=== PATIENT | male | born 1960 | race American Indian/Alaskan Native ===

== ENCOUNTER 2016-07-20 22:14 | Inpatient (IN) | payer BC ==
[2016-07-20 23:28] LABS: BUN/Creatinine Ratio 15.83; Blood Urea Nitrogen 19 mg/dL (9-20); Carbon Dioxide 27 mmol/L (22-30); Glucose 158 mg/dL (75-100)
[2016-07-20 23:29] LABS: Anion Gap 18 mmol/L; Chloride 95.7 mmol/L (98-107); Potassium 3.8 mmol/L (3.6-5.0); Sodium 137 mmol/L (137-145)
[2016-07-20 23:50] LABS: Basophils % (Auto) 0.7 % (0.0-1.8); Eosinophils % (Auto) 1.1 % (0.0-4.3); Hematocrit 41.6 % (35.5-45.6); Hemoglobin 13.6 gm/dl (11.8-15.2); Mean Corpuscular HGB Conc 33 % (32-34); Mean Corpuscular Hemoglobin 27 pg (28-32); Mean Corpuscular Volume 84 fl (84-94); Platelet Count 259 K/mm3 (140-440); Red Blood Count 4.98 M/mm3 (3.65-5.03); Red Cell Distribution Width 13.8 % (13.2-15.2); White Blood Count 8.5 K/mm3 (4.5-11.0)
[2016-07-20 23:58] LABS: INR 0.99 (0.87-1.13)
--- NOTE | 2016-07-21 00:07 | Emergency Department Report ---
HPI - General Chief Complaint: Nosebleed Time Seen by Provider: 07/20/16 23:44 - HPI HPI: This is a 56-year-old Afro-[place] male presents the emergency department with complaint of a nosebleed from the right nasal passage is been going on intermittently for the past day. He does admit to blowing his nose and " picking at it." He denies any significant hemorrhage out of the nostril. He denies any previous significant history of epistaxis. He has a history of hypertension, COPD, non-insulin dependent diabetes and GERD. His primary care doctor is Melanie Lincoln and his acetylene torch burner is Dr. Melchor. He does present with very elevated blood pressure and says he is compliant with his medications which include hydralazine, clonidine, lisinopril and amlodipine. He denies any chest pain, headache, vision change or any shortness of breath. He has not taken anything for symptoms prior to presentation. ED Past Medical Hx - Past Medical History Hx Hypertension: Yes Hx Diabetes: Yes Hx GERD: Yes Hx Arthritis: Yes Hx Asthma: Yes Hx COPD: Yes - Surgical History Past Surgical History?: Yes Additional Surgical History: bilateral elbow surgery 2003 and left knee 2003 - Social History Smoking Status: Never Smoker Substance Use Type: None, Alcohol - Medications Home Medications: Home Medications Medication Instructions Recorded Confirmed Last Taken Type Clonidine HCl [Catapres] 0.2 mg PO BID 08/21/13 07/21/16 1 Day Ago History Hydrochlorothiazide [HCTZ] 25 mg PO BID 08/21/13 07/21/16 1 Day Ago History Levalbuterol Tartrate [Xopenex Hfa] 15 gm INHALATION PRN PRN 08/21/13 07/21/16 2 Days Ago History Lisinopril [Zestril] 40 mg PO BID 08/21/13 07/21/16 1 Day Ago History Mometasone/Formoterol [Dulera 200 8.8 gm INHALATION DAILY 08/21/13 07/21/16 3 Days Ago History Mcg/5 Mcg Inhaler] Tiotropium [Spiriva] 18 mcg INHALATION DAILY 08/21/13 07/21/16 3 Days Ago History Zolpidem [Ambien] 10 mg PO PRN PRN 08/21/13 07/21/16 2 Days Ago History glipiZIDE [Glucotrol Xl] 5 mg PO PRN PRN 08/21/13 07/21/16 1 Day Ago History predniSONE [Deltasone] 3 tab PO QDAY #15 tab 10/25/13 07/21/16 1 Day Ago Rx ALPRAZolam [Xanax TAB] 0.25 mg PO PRN PRN 11/27/15 07/21/16 3 Days Ago History Atorvastatin Calcium [Atorvastatin 40 mg PO HS 11/27/15 07/21/16 1 Day Ago History Calcium] Colchicine [Colcrys] 0.6 mg PO BID PRN 11/27/15 07/21/16 5 Days Ago History Fluticasone [Flonase] 1 spray NS QDAY 11/27/15 07/21/16 2 Days Ago History HYDROcodone/ACETAMINOPHEN 1 tab PO PRN PRN 11/27/15 07/21/16 3 Days Ago History [Hydrocodon-Acetaminophen 5-325] ISOSORBIDE MONOnitrate [Imdur ER] 30 mg PO DAILY #30 tab.er.24h 11/27/15 1 Day Ago Rx Nebivolol HCl [Bystolic] 20 mg PO DAILY 11/27/15 07/21/16 1 Day Ago History Omeprazole [PriLOSEC] 40 mg PO QDAY 11/27/15 07/21/16 1 Day Ago History Terazosin HCl [Terazosin HCl] 10 mg PO HS 11/27/15 07/21/16 2 Days Ago History amLODIPine [Norvasc] 10 mg PO DAILY 11/27/15 07/21/16 1 Day Ago History ED Review of Systems ROS: Stated complaint: NOSE BLEED Other details as noted in HPI Comment: All other systems reviewed and negative Constitutional: denies: chills, fever Eyes: denies: eye pain, eye discharge, vision change ENT: epistaxis. denies: throat pain Respiratory: denies: cough, shortness of breath, wheezing Cardiovascular: denies: chest pain, palpitations Gastrointestinal: denies: abdominal pain, nausea, diarrhea Genitourinary: denies: urgency, dysuria Musculoskeletal: denies: back pain, joint swelling, arthralgia Skin: denies: rash, lesions Neurological: denies: headache, weakness, paresthesias Physical Exam - Physical Exam Vital Signs: Vital Signs 07/20/16 07/20/16 22:18 22:20 Temperature 98.4 F 98.4 F Pulse Rate 71 71 Respiratory 18 16 Rate Blood Pressure 189/106 Blood Pressure 189/106 [Right] O2 Sat by Pulse 98 98 Oximetry Physical Exam: GENERAL: The patient is well-developed well-nourished. HEENT: Normocephalic. Atraumatic. Extraocular motions are intact. Patient has moist mucous membranes. Pupils equal reactive to light bilaterally. There is some blood seen in the right nasal passage but no hemorrhage or current oozing. Oropharynx is clear. NECK: Supple. Trachea is midline. CHEST/LUNGS: Clear to auscultation. There is no respiratory distress noted. HEART/CARDIOVASCULAR: Regular. There is no tachycardia. There is no gallop rub or murmur. ABDOMEN: Abdomen is soft, nontender. Patient has normal bowel sounds. There is no abdominal distention. SKIN: There is no rash. There is no edema. There is no diaphoresis. NEURO: The patient is awake, alert, and oriented. The patient is cooperative. The patient has no focal neurologic deficits. The patient has normal speech. Cranial nerves II through XII grossly intact. MUSCULOSKELETAL: There is no tenderness or deformity. There is no limitation range of motion. There is no evidence of acute injury. ED Course Vital Signs 07/20/16 02 22:18 22:20 Temperature 98.4 F 98.4 F Pulse Rate 71 71 Respiratory 18 16 Rate Blood Pressure 189/106 Blood Pressure 189/106 [Right] O2 Sat by Pulse 98 98 Oximetry ED Medical Decision Making - Lab Data Result diagrams: 07/20/16 22:52 07/20/16 22:52 - Medical Decision Making This is a 56-year-old male presents the emergency department with a complaint of epistaxis from the right nasal passage. There is some coagulated blood seen in the nasal passage but there is no active bleed or hemorrhage seen. During the patient's triage and examination he was found have very elevated blood pressure. Patient is usually compliant with his blood pressure medications. He took 2 of his blood pressure medications in the waiting room prior to getting back into the main emergency department. He denies any chest pain, headache, vision change, shortness of breath. I do believe that his elevated blood pressure is part of the reason for his continued epistaxis today. Patient had some blood work that did not show any signs of infection, electrolyte abnormalities, renal insufficiency or any bleeding disorder. At first we attempted to let his oral blood pressure medications, that he took prior to triage, to work to bring his blood pressure down to a reasonable level. However his blood pressure started rising and hit a systolic of 220. At this point an IV was placed and the patient and he was given a 10 mg dose of hydralazine. He was then given 20 mg IV dose of labetalol. When this did not properly control his blood pressure, the patient felt that it was due to the fact that he could not relax so he was given a dose of Ativan and this appropriately relaxed the patient to the point where he was sleeping comfortably in the emergency department. His blood pressure was checked at this point it still remained high. He was given another 10 mg dose of IV hydralazine and then was given a 40 mg IV dose of labetalol. After the labetalol was given his blood pressure was rechecked and his blood pressure was 201/113. It was at this point where the patient was told that he needs admission to the hospital for an IV drip to control his blood pressure and for a consultation with cardiology. However the patient does not want be admitted. I discussed with the patient in great detail that a blood pressure at this level could cause stroke, heart attack, heart failure, debility. The patient feels that if he goes home and rests, and takes his oral blood pressure medications, that his blood pressure will come down to a more reasonable level. I told the patient that I am not willing to risk it and that he would have to sign out AGAINST MEDICAL ADVICE. The patient is AAO 3 and of sound mind. He had all of the risks of leaving this hospital without blood pressure explained to him and he understands and still would like to sign the paper. Patient signed the AMA form. Patient did receive Ativan he would not be allowed to drive himself home unless he waits for another 2 hours. For this reason his is on her way in to pick him up. . The patient knows that if he changes his mind about admission or has any symptoms such as chest pain, neurological deficits, respiratory distress or for any reason, that he is allowed to come back to the emergency department for further evaluation and is encouraged to do so. - Differential Diagnosis hypertensive crisis, accelerated hypertension, renovascular HTN Critical Care Time: No Critical care attestation.: If time is entered above; I have spent that time in minutes in the direct care of this critically ill patient, excluding procedure time. ED Disposition Clinical Impression: Asymptomatic hypertensive urgency, Epistaxis Disposition: LEFT AGAINST MEDICAL ADVICE Is pt being admited?: No Condition: Stable Referrals: MELANEI LINCOLN MD [Primary Care Provider] - [facility] JENNIFER MELCHOR MD [Staff Physician] - [place] Forms: AMA Form Time of Disposition: 05:26
[2016-07-21] MEDS: APRESOLINE IV ONE ×2 (00:18→01:19)
[2016-07-21] MEDS ORDERED: NORMODYNE IV ONE ×2 (01:57→04:17)
[2016-07-21] MEDS ORDERED: ATIVAN IV ONE (02:44)
[2016-07-21] MEDS ORDERED: APRESOLINE IV ONE (03:49)
[2016-07-21] MEDS: NORMODYNE IV ONE ×2 (04:42→04:58)
[2016-07-21] MEDS ORDERED: NORVASC PO ONE (06:29)
[2016-07-21] MEDS ORDERED: ZESTRIL PO ONE (06:29)
[2016-07-21] MEDS ORDERED: CARDENE DRIP 40 MG/200 ML 40 MG/200 ML BAG IV SCH (08:30)
[2016-07-21] MEDS ORDERED: AMBIEN PO PRN (09:24)
[2016-07-21] MEDS ORDERED: COLCRYS PO PRN (09:24)
[2016-07-21] MEDS ORDERED: LEVALBUTEROL TARTRATE INHALATION PRN (09:24)
[2016-07-21] MEDS ORDERED: XANAX PO PRN (09:24)
[2016-07-21] MEDS ORDERED: GLUCOTROL XL PO PRN (09:24)
--- NOTE | 2016-07-21 09:41 | History and Physical Report ---
History of Present Illness Date of examination: 07/21/16 Date of admission: 07/21/16 09:13 Chief complaint: Nose bleeding, Hypertensive emergency History of present illness: Pt is a 56 y/o male with DMm, HTN, gout, COPD, and HLD who presented to the ED with epistaxis. Patient has been having the symptoms for the past few days. Patient has a history of hypertension but has not been consistent with his medications. At emergency department blood pressure was found to be in the 213/ 109. Denies any chest pain shortness of breath paroxysmal nocturnal dyspnea. No headaches. No blurred vision. The epistaxis has resolved at the time of documentation. Admission was therefore requested for control of blood pressure. Patient was found to be slightly elevated also. Past History Past Medical History: COPD, diabetes, hypertension, hyperlipidemia Past Surgical History: No surgical history Social history: denies: smoking, alcohol abuse Family history: hypertension Medications and Allergies Allergies Allergy/AdvReac Type Severity Reaction Status Date / Time No Known Allergies Allergy Verified 07/20/16 22:19 Home Medications Medication Instructions Recorded Confirmed Last Taken Type Clonidine HCl [Catapres] 0.2 mg PO BID 08/21/13 07/21/16 1 Day Ago History Hydrochlorothiazide [HCTZ] 25 mg PO BID 08/21/13 07/21/16 1 Day Ago History Levalbuterol Tartrate [Xopenex Hfa] 15 gm INHALATION PRN PRN 08/21/13 07/21/16 2 Days Ago History Lisinopril [Zestril] 40 mg PO BID 08/21/13 07/21/16 1 Day Ago History Mometasone/Formoterol [Dulera 200 8.8 gm INHALATION DAILY 08/21/13 07/21/16 3 Days Ago History Mcg/5 Mcg Inhaler] Tiotropium [Spiriva] 18 mcg INHALATION DAILY 08/21/13 07/21/16 3 Days Ago History Zolpidem [Ambien] 10 mg PO PRN PRN 08/21/13 07/21/16 2 Days Ago History glipiZIDE [Glucotrol Xl] 5 mg PO PRN PRN 08/21/13 07/21/16 1 Day Ago History predniSONE [Deltasone] 3 tab PO QDAY #15 tab 10/25/13 07/21/16 1 Day Ago Rx ALPRAZolam [Xanax TAB] 0.25 mg PO PRN PRN 11/27/15 07/21/16 3 Days Ago History Atorvastatin Calcium [Atorvastatin 40 mg PO HS 11/27/15 07/21/16 1 Day Ago History Calcium] Colchicine [Colcrys] 0.6 mg PO BID PRN 11/27/15 07/21/16 5 Days Ago History Fluticasone [Flonase] 1 spray NS QDAY 11/27/15 07/21/16 2 Days Ago History HYDROcodone/ACETAMINOPHEN 1 tab PO PRN PRN 11/27/15 07/21/16 3 Days Ago History [Hydrocodon-Acetaminophen 5-325] ISOSORBIDE MONOnitrate [Imdur ER] 30 mg PO DAILY #30 tab.er.24h 11/27/15 1 Day Ago Rx Nebivolol HCl [Bystolic] 20 mg PO DAILY 11/27/15 07/21/16 1 Day Ago History Omeprazole [PriLOSEC] 40 mg PO QDAY 11/27/15 07/21/16 1 Day Ago History Terazosin HCl [Terazosin HCl] 10 mg PO HS 11/27/15 07/21/16 2 Days Ago History amLODIPine [Norvasc] 10 mg PO DAILY 11/27/15 07/21/16 1 Day Ago History Active Meds: Active Medications Alprazolam (Xanax) 0.25 mg PO PRN PRN PRN Reason: Anxiety Amlodipine Besylate (Norvasc) 10 mg PO DAILY [facility] Atorvastatin Calcium (Lipitor) 40 mg PO HS [facility] Clonidine HCl (Catapres) 0.2 mg PO BID [facility] Colchicine (Colcrys) 0.6 mg PO BID PRN PRN Reason: Pain , Severe (7-10) Glipizide (Glucotrol Xl) 5 mg PO PRN PRN PRN Reason: Hyperglycemia Nicardipine/Sodium Chloride (Cardene Drip 40 Mg/200 Ml) 40 mg in 200 mls @ 25 mls/hr IV TITR CALVIN; 5 MG/HR PRN Reason: Protocol Last Admin: 07/21/16 08:29 Dose: 5 mg/hr, 25 mls/hr Isosorbide Mononitrate (Imdur) 30 mg PO DAILY [facility] Miscellaneous Medication (Levalbuterol Tartrate [Xopenex Hfa]) 15 gm INHALATION PRN PRN PRN Reason: Bronchospasm Miscellaneous Medication (Lisinopril [Zestril]) 40 mg PO BID [facility] Miscellaneous Medication (Mometasone/Formoterol [Dulera 200 Mcg/5 Mcg Inhaler]) 8.8 gm INHALATION DAILY [facility] Miscellaneous Medication (Nebivolol Hcl [Bystolic]) 20 mg PO DAILY [facility] Miscellaneous Medication (Omeprazole [Prilosec]) 40 mg PO QDAY [facility] Miscellaneous Medication (Terazosin Hcl [Terazosin Hcl]) 10 mg PO HS [facility] Prednisone (Deltasone) mg PO QDAY [facility] Tiotropium Titus (Spiriva) puff IH DAILY [facility] Zolpidem Tartrate (Ambien) 10 mg PO PRN PRN PRN Reason: Insomnia Review of systems Constitutional: Well Nouridhed and Well developed. Head: NC/ AT Eyes: Denies any visual impairments. No discharge from the eyes Nose: Denies any rhinorrhea. Has epistaxis Throats: Denies any post nasal drainage. Ears: Denies any hearing deficits Cardiovascular system: Denies any chest pain, shortness of breath, orthopnea, paroxysmal nocturnal dyspnea, or palpitation. Respiratory system: Denies any cough, difficulty breathing, wheezing, pleuritic chest pain, Gastrointestinal system: Denies any abdominal pain, nausea vomiting, hematemesis or melena. Neurological system: Denies any headache, slurred speech, facial droop, lateralizing weakness Genitalia system: Denies any dysuria, urinary frequency or urgency, urethral discharge Skin: No rashes, hyperpigmented spots. Hematological: Denies any cervical tenderness hemorrhages or petechia. Immunological: Denies any multiple septic spots, Lymphatic: Denies any generalized lymphadenopathy. Endocrine: Denies any polyuria, polydipsia, polyphagia. No heat or cold intolerance. Musculoskeletal system: No joint pain or swelling. Psych: No visual, tactile, auditory or hallucination Exam - Constitutional Vitals: Temp Pulse Resp BP Pulse Ox 97.9 F 78 10 L 163/90 98 07/21/16 06:00 07/21/16 09:00 07/21/16 09:00 07/21/16 09:00 07/21/16 09:00 General appearance: Present: no acute distress, well-nourished - EENT Eyes: Present: PERRL ENT: hearing intact, clear oral mucosa - Neck Neck: Present: supple, normal ROM - Respiratory Respiratory effort: normal Respiratory: bilateral: CTA - Cardiovascular Heart Sounds: Present: S1 & S2. Absent: rub, click - Extremities Extremities: pulses symmetrical, No edema Peripheral Pulses: within normal limits - Abdominal General gastrointestinal: Present: soft, non-tender, non-distended, normal bowel sounds Male genitourinary: Present: normal - Integumentary Integumentary: Present: clear, warm, dry - Musculoskeletal Musculoskeletal: gait normal, strength equal bilaterally - Psychiatric Psychiatric: appropriate mood/affect, intact judgment & insight - Neurologic Neurologic: CNII-XII intact, moves all extremities Results - Labs CBC & Chem 7: 07/20/16 22:52 07/20/16 22:52 Assessment and Plan 1. Hypertensive emergency: Blood pressure in the emergency department was as high as 208/103 2. Epistaxis most likely secondary to hypertensive emergency: Commence patient on Cardizem drip. 2 discontinue same oral and systolic blood pressures less than 170. Commenced at that hypertensive medications with Amlodipine, Losartan , and hydralazine. We will hold off on the HCTZ because of a history of gout Patient has been noncompliant with his medication and he said because of its effect on his "manhood". Therefore will hold off on beta blockers. 3. Diabetes mellitus: Commence sliding scale insulin, consistent carbohydrate diet. 4. Obesity discussed at length regarding weight management and need for compliance with medication. 5. Any anticoagulation for DVT prophylaxis because of recent history of epistaxis. SCDs will be commenced. Spent 35 minutes in direct patient care review of medical records and laboratory data special management care as well as counseling on the importance of compliance with his medications.
[2016-07-21] MEDS ORDERED: NON-FORMULARY (Omeprazole [Prilosec] 40 MG) PO SCH (10:00)
[2016-07-21] MEDS ORDERED: FORMOTEROL INHALATION SCH (10:00)
[2016-07-21] MEDS ORDERED: NON-FORMULARY (Nebivolol Hcl [Bystolic] 20 MG) PO SCH (10:00)
[2016-07-21] MEDS ORDERED: MOMETASONE INHALATION SCH (10:00)
[2016-07-21] MEDS: IMDUR PO SCH (10:05)
[2016-07-21] MEDS: DELTASONE PO SCH (10:47)
[2016-07-21] MEDS ORDERED: ZESTRIL ONE (11:31)
[2016-07-21] MEDS: NORVASC PO SCH (11:40)
[2016-07-21] MEDS: CATAPRES PO SCH ×2 (11:40→22:05)
[2016-07-21] MEDS: ZESTRIL PO SCH (11:40)
[2016-07-21] MEDS ORDERED: DUONEB 0.5 MG-3 MG/3 ML SOLN IH PRN (12:05)
[2016-07-21] MEDS ORDERED: PROVENTIL IH PRN (14:02)
[2016-07-21] MEDS: PULMICORT IH SCH (19:48)
[2016-07-21] MEDS: BROVANA NEBU IH SCH (19:48)
[2016-07-21] MEDS ORDERED: NON-FORMULARY (Terazosin Hcl [Terazosin Hcl] 10 MG) PO SCH (22:00)
[2016-07-21] MEDS: MINIPRESS PO SCH (22:05)
[2016-07-21] MEDS: SPIRIVA IH SCH (22:07)
[2016-07-22] MEDS ORDERED: APRESOLINE IV PRN (04:59)
[2016-07-22] MEDS: SPIRIVA IH SCH ×2 (07:29→10:06)
[2016-07-22] MEDS: PULMICORT IH SCH (07:29)
[2016-07-22] MEDS: BROVANA NEBU IH SCH (07:29)
--- NOTE | 2016-07-22 09:21 | Admit Criteria Form ---
Admission Criteria Documentation: HYPERTENSION Clinical Indications for Admission to Inpatient Care ( Place "X" for any and all applicable criteria): Admission is indicated for ANY ONE of the following(1)(2)(3)(4): [ ]I. Hypertensive emergency, with evidence of acute and progressing target organ disease as indicated by ANY ONE of the following: [ ]a) Hypertensive encephalopathy (eg, confusion, altered mental status) [ ]b) Cerebral infarction [ ]c) Intracranial hemorrhage [ ]d) Myocardial ischemia or infarction [ ]e) Pulmonary edema [ ]f) Aortic dissection [ ]g) Seizure [ ]h) Acute renal insufficiency [ ]i) Papilledema [ ]j) Microangiopathic hemolytic anemia [ ]II. Adrenergic crisis (eg, severe hypertension due to pheochromocytoma crisis, cocaine or amphetamine intoxication, or clonidine withdrawal) [X]III. Severe hypertension (SBP greater than 180 mmHg or DBP greater than 110 mmHg or greater than the 95th percentile for age, gender, and height in pediatric patients) that cannot be controlled (eg, to SBP less than 160 mmHg and DBP less than 100 mmHg in adults) by treatment with oral medication in emergency department or observation care Extended stay beyond goal length of stay may be needed for(11)(12)(13): [ ]a) Persistent hypertensive encephalopathy [ ]b) Continuation of pulmonary edema [ ]c) Recurring or persistent severe hypertension [ ]d) Target organ damage (eg, angina, stroke, aortic dissection) [ ]e) Associated renal insufficiency The original [employer] content created by [employer] has been revised. The portions of the content which have been revised are identified through the use of italic text or in bold, and [facility] has neither reviewed nor approved the modified material. All other unmodified content is copyright [facility]. Please see references footnoted in the original [facility] edition 2016 Admission Criteria Met: Yes
[2016-07-22] MEDS ORDERED: TOPROL XL PO SCH (10:00)
[2016-07-22] MEDS ORDERED: PROTONIX PO SCH (10:00)
[2016-07-22] MEDS: IMDUR PO SCH (10:20)
[2016-07-22] MEDS: DELTASONE PO SCH (10:20)
[2016-07-22] MEDS: MINIPRESS PO SCH (10:20)
[2016-07-22] MEDS: CATAPRES PO SCH (10:22)
[2016-07-22] MEDS: ZESTRIL PO SCH (10:23)
[2016-07-22] MEDS: NORVASC PO SCH (10:24)
[2016-07-22] MEDS ORDERED: HCTZ PO SCH (12:00)
--- NOTE | 2016-07-22 12:37 | Consultation ---
History of Present Illness Consult date: 07/22/16 Requesting physician: GIOVANNA GREEN Consult reason: hypertension, known to you History of present illness: The patient is a 56-year-old male who is followed by Dr. Melchor in the office with a history of hypertension, diabetes, gout, who presented to the ER with complaints of epistaxis. However, his blood pressure was noted to be very elevated and he was admitted for further management of blood pressure. He denies any chest pain, palpitations, shortness of breath or headache. Cath done 11/2015 showed non-obstructive disease. Echo done 11/2015 showed EF 60-65%. Past History Past Medical History: COPD, diabetes, hypertension, hyperlipidemia, other (gout) Past Surgical History: Other (elbow surgery, knee surgery) Social history: . denies: smoking, alcohol abuse Family history: hypertension Medications and Allergies Allergies Allergy/AdvReac Type Severity Reaction Status Date / Time No Known Allergies Allergy Verified 07/20/16 22:19 Home Medications Medication Instructions Recorded Confirmed Last Taken Type Clonidine HCl [Catapres] 0.2 mg PO BID 08/21/13 07/21/16 1 Day Ago History Hydrochlorothiazide [HCTZ] 25 mg PO BID 08/21/13 07/21/16 1 Day Ago History Levalbuterol Tartrate [Xopenex Hfa] 15 gm INHALATION PRN PRN 08/21/13 07/21/16 2 Days Ago History Lisinopril [Zestril] 40 mg PO BID 08/21/13 07/21/16 1 Day Ago History Mometasone/Formoterol [Dulera 200 8.8 gm INHALATION DAILY 08/21/13 07/21/16 3 Days Ago History Mcg/5 Mcg Inhaler] Tiotropium [Spiriva] 18 mcg INHALATION DAILY 08/21/13 07/21/16 3 Days Ago History Zolpidem [Ambien] 10 mg PO PRN PRN 08/21/13 07/21/16 2 Days Ago History glipiZIDE [Glucotrol Xl] 5 mg PO PRN PRN 08/21/13 07/21/16 1 Day Ago History predniSONE [Deltasone] 3 tab PO QDAY #15 tab 10/25/13 07/21/16 1 Day Ago Rx ALPRAZolam [Xanax TAB] 0.25 mg PO PRN PRN 06/27/16 02/19/17 3 Days Ago History Atorvastatin Calcium [Atorvastatin 40 mg PO HS 11/27/15 07/21/16 1 Day Ago History Calcium] Colchicine [Colcrys] 0.6 mg PO BID PRN 11/27/15 07/21/16 5 Days Ago History Fluticasone [Flonase] 1 spray NS QDAY 11/27/15 07/21/16 2 Days Ago History HYDROcodone/ACETAMINOPHEN 1 tab PO PRN PRN 11/27/15 07/21/16 3 Days Ago History [Hydrocodon-Acetaminophen 5-325] ISOSORBIDE MONOnitrate [Imdur ER] 30 mg PO DAILY #30 tab.er.24h 11/27/15 1 Day Ago Rx Nebivolol HCl [Bystolic] 20 mg PO DAILY 11/27/15 07/21/16 1 Day Ago History Omeprazole [PriLOSEC] 40 mg PO QDAY 11/27/15 07/21/16 1 Day Ago History Terazosin HCl [Terazosin HCl] 10 mg PO HS 11/27/15 07/21/16 2 Days Ago History amLODIPine [Norvasc] 10 mg PO DAILY 11/27/15 07/21/16 1 Day Ago History Active Meds: Active Medications Albuterol (Proventil) 2.5 mg IH Q4HRT PRN PRN Reason: Shortness Of Breath Alprazolam (Xanax) 0.25 mg PO PRN PRN PRN Reason: Anxiety Amlodipine Besylate (Norvasc) 10 mg PO DAILY [facility] Last Admin: 07/22/16 10:24 Dose: 10 mg Arformoterol Tartrate (Brovana Nebu) 15 mcg IH Q12HRT [facility] Last Admin: 07/22/16 07:29 Dose: 15 mcg Atorvastatin Calcium (Lipitor) 40 mg PO [facility] Last Admin: 07/21/16 22:01 Dose: 40 mg Budesonide (Pulmicort) 1 mg IH Q12HRT [facility] Last Admin: 07/22/16 07:29 Dose: 1 mg Clonidine HCl (Catapres) 0.2 mg PO BID [facility] Last Admin: 07/22/16 10:22 Dose: 0.2 mg Colchicine (Colcrys) 0.6 mg PO BID PRN PRN Reason: Pain , Severe (7-10) Glipizide (Glucotrol Xl) 5 mg PO PRN PRN PRN Reason: Hyperglycemia Hydralazine HCl (Apresoline) 10 mg IV Q4HR PRN PRN Reason: Hypertension Last Admin: 07/22/16 05:11 Dose: 10 mg Hydrochlorothiazide (Hctz) 25 mg PO QDAY [facility] Nicardipine/Sodium Chloride (Cardene Drip 40 Mg/200 Ml) 40 mg in 200 mls @ 25 mls/hr IV TITR CALVIN; 5 MG/HR PRN Reason: Protocol Last Admin: 07/21/16 08:29 Dose: 5 mg/hr, 25 mls/hr Isosorbide Mononitrate (Imdur) 30 mg PO DAILY [facility] Last Admin: 07/22/16 10:20 Dose: 30 mg Lisinopril (Zestril) 40 mg PO QDAY [facility] Last Admin: 07/22/16 10:23 Dose: 40 mg Metoprolol Succinate (Toprol Xl) 200 mg PO QDAY [facility] Last Admin: 07/22/16 10:21 Dose: 200 mg Pantoprazole Sodium (Protonix) 40 mg PO DAILY [facility] Last Admin: 07/22/16 10:22 Dose: 40 mg Prazosin HCl (Minipress) 5 mg PO Q12HR [facility] Last Admin: 07/22/16 10:20 Dose: 5 mg Prednisone (Deltasone) 20 mg PO QDAY [facility] Last Admin: 07/22/16 10:20 Dose: 20 mg Tiotropium [place] (Spiriva) 1 puff IH DAILY [facility] Last Admin: 07/22/16 10:06 Dose: Not Given Zolpidem Tartrate (Ambien) 10 mg PO PRN PRN PRN Reason: Insomnia Last Admin: 07/21/16 23:04 Dose: 10 mg Review of Systems Constitutional: no fever, no chills Ears, nose, mouth and throat: epistaxis, no nasal congestion, no nasal discharge Cardiovascular: no chest pain, no orthopnea, no palpitations, no syncope, no shortness of breath Respiratory: no cough, no congestion, no wheezing Gastrointestinal: no nausea, no vomiting, no diarrhea Genitourinary Male: no dysuria, no hematuria Musculoskeletal: no neck stiffness, no neck pain, no myalgias Integumentary: no rash, no pruritis Neurological: no parathesias, no numbness, no tingling, no headaches Endocrine: no cold intolerance, no heat intolerance Hematologic/Lymphatic: no easy bruising, no easy bleeding Allergic/Immunologic: no urticaria, no wheezing Physical Examination Vital Signs Temp Pulse Resp BP Pulse Ox 98.4 F 71 18 189/106 98 07/20/16 22:18 07/20/16 22:18 07/20/16 22:18 07/20/16 22:18 07/20/16 22:18 General appearance: no acute distress, obese HEENT: Positive: Normocephaly, Mucus Membranes Moist Neck: Positive: neck supple, trachea midline Cardiac: Positive: Reg Rate and Rhythm, S1/S2 Lungs: Positive: clear to auscultation Neuro: Positive: Grossly Intact Abdomen: Positive: Soft, Active Bowel Sounds. Negative: Tender Skin: Positive: Clear. Negative: Rash Extremities: Present: normal. Absent: edema Results 07/20/16 22:52 07/20/16 22:52 - Imaging and Cardiology Echo: report reviewed (07/2016: EF 50-55%) EKG: image reviewed EKG interpretations - Telemetry EKG Rhythm: Sinus Rhythm - EKG Sinus rhythms and dysrhythmias: sinus rhythm Assessment and Plan Accelerated hypertension Echo 11/2015: EF 50-55% continue clonidine, toprol, norvasc add HCTZ change lisinopril to valsartan and recommend exforge on discharge Non-obstructive CAD [facility] 11/27/2015: lt main patent, lad proximal 20%, mid lad 60% (ffr 0.81), diagonal 1 proximal 30%, lcx large dominant, patent in av groove lpda patent, om1-3 patent, rca small non dominant 30% continue ASA, statin, Imdur Diabetes Gout [place] Obesity Optimize anti-hypertensive regimen. Once BP adequately controlled, pt. may be discharged from a cardiac standpoint. He is advised to exercise and follow a low salt diet. Recommend regular f/u with his PCP Dr. Morin as well as Dr. Melchor. The patient has been seen in conjunction with Dr. Westbrook who agrees with the assessment and plan of care. Thank you Dr. Green for allowing us to participate in the care of this patient.
--- NOTE | 2016-07-22 13:37 | Progress Note ---
Assessment and Plan Assessment and plan: 1. Malignant HTN - BP improving; cont current meds and consult Cardiology; adjust as needed 2. Epistaxis- now resolved; he reported that he was picking his nose 3. DM with hyperglycemia -cotn current meds; insulin sliding scale 4. COPD- cont current meds 5. DVT prophylaxis- lovenox for D/c when BP is better controlled History Interval history: f/u HTN malignancy; epistaxis Patient seen the bedside; no more epistaxis; he sees Dr. 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 Absent: scleral icterus, conjunctival injection ENT: hearing intact, clear oral mucosa, other (dried blood in the RT nostril), no oropharyngeal erythema, no poor dentition - Neck Neck: Present: supple - Respiratory Respiratory: negative: diminished, rales, rhonchi, wheezing - Cardiovascular Rhythm: regular Heart Sounds: Present: S1 & S2. Absent: gallop - Extremities Extremities: no ischemia, pulses intact, pulses symmetrical, No edema Peripheral Pulses: within normal limits - Abdominal General gastrointestinal: soft, non-tender, non-distended, normal bowel sounds - Integumentary Integumentary: Present: clear - Psychiatric Psychiatric: appropriate mood/affect, intact judgment & insight, cooperative - Neurologic Neurologic: CNII-XII intact, moves all extremities Results - Labs CBC & Chem 7: 07/20/16 22:52 07/20/16 22:52 Labs: Laboratory Last Values WBC 8.5 K/mm3 (4.5-11.0) 07/20/16 22:52 RBC 4.98 M/mm3 (3.65-5.03) 07/20/16 22:52 Hgb 13.6 gm/dl (11.8-15.2) 07/20/16 22:52 Hct 41.6 % (35.5-45.6) 07/20/16 22:52 MCV 84 fl (84-94) 07/20/16 22:52 MCH 27 pg (28-32) L 07/20/16 22:52 MCHC 33 % (32-34) 07/20/16 22:52 RDW 13.8 % (13.2-15.2) 07/20/16 22:52 Plt Count 259 K/mm3 (140-440) 07/20/16 22:52 Lymph % (Auto) 25.0 % (13.4-35.0) 07/20/16 22:52 Jay % (Auto) 9.2 % (0.0-7.3) H 07/20/16 22:52 Eos % (Auto) 1.1 % (0.0-4.3) 07/20/16 22:52 Baso % (Auto) 0.7 % (0.0-1.8) 07/20/16 22:52 Lymph # 2.1 K/mm3 (1.2-5.4) 07/20/16 22:52 Jay # 0.8 K/mm3 (0.0-0.8) 07/20/16 22:52 Eos # 0.1 K/mm3 (0.0-0.4) 07/20/16 22:52 Baso # 0.1 K/mm3 (0.0-0.1) 07/20/16 22:52 Seg Neutrophils % 64.0 % (40.0-70.0) 07/20/16 22:52 Seg Neutrophils # 5.5 K/mm3 (1.8-7.7) 07/20/16 22:52 PT 13.0 Sec. (12.2-14.9) 07/20/16 22:52 INR 0.99 (0.87-1.13) 07/20/16 22:52 Sodium 137 mmol/L (137-145) 07/20/16 22:52 Potassium 3.8 mmol/L (3.6-5.0) 07/20/16 22:52 Chloride 95.7 mmol/L (98-107) L 07/20/16 22:52 Carbon Dioxide 27 mmol/L (22-30) 07/20/16 22:52 Anion Gap 18 mmol/L 07/20/16 22:52 BUN 19 mg/dL (9-20) 07/20/16 22:52 Creatinine 1.2 mg/dL (0.8-1.5) 07/20/16 22:52 Estimated GFR > 60 ml/min 07/20/16 22:52 BUN/Creatinine Ratio 15.83 % 07/20/16 22:52 Glucose 158 mg/dL (75-100) H 07/20/16 22:52 POC Glucose 262 (70-105) H 07/22/16 12:15 Calcium 9.0 mg/dL (8.4-10.2) 07/20/16 22:52
--- NOTE | 2016-07-22 15:39 | Discharge Summary ---
Providers - Providers Date of Admission: 07/21/16 09:13 Date of discharge: 07/22/16 Attending physician: GIOVANNA HASTINGS 07/22/16 10:26 Consult to Physician [CONS] Routine Consulting Provider: JENNIFER MONZON Reason For Exam: HTN urgency-patient known to you Place consult to:: dr. monzon Notified:: overhead paged Phone number called:: Was contact made?: Yes If yes, spoke with:: ny yepez Time called:: 11:18 Primary care physician: MELANIE LINCOLN Hospitalization Condition: Fair Disposition: STILL A PATIENT Exam - Constitutional Vitals: Temp Pulse Resp BP Pulse Ox 97.9 F 101 H 18 178/99 94 07/22/16 07:00 07/22/16 10:24 07/22/16 07:42 07/22/16 07:00 07/22/16 07:00 Plan Activity: no restrictions Diet: low salt Follow up with: MELANIE LINCOLN MD [Primary Care Provider] - [place] JENNIFER MONZON MD [Staff Physician] - [place] Forms: AMA Form Prescriptions: Amlodipine/Valsartan/Hcthiazid [Exforge Hct 10-320-25 mg Tab] 1 each PO DAILY # 30 tablet
[2016-07-22 17:52] VITALS: BP 118/68
[2016-07-23] MEDS ORDERED: DIOVAN PO SCH (10:00)
== END 2016-07-22 18:30 | disposition home or self-care (01) | DRG 305 ==
LOC: ED 22:14 → 3A 07-21 09:13
PROVIDERS: ADMIT Family Medicine; ATTEND Hospitalist
DX: I16.1 Hypertensive emergency (principal); R04.0 Epistaxis; E78.5 Hyperlipidemia, unspecified; I10 Essential (primary) hypertension; J44.9 Chronic obstructive pulmonary disease, unspecified; K21.9 Gastro-esophageal reflux disease without esophagitis; M19.90 Unspecified osteoarthritis, unspecified site; J45.909 Unspecified asthma, uncomplicated; M10.9 Gout, unspecified; E66.9 Obesity, unspecified; I25.10 Atherosclerotic heart disease of native coronary artery without angina pectoris; E11.65 Type 2 diabetes mellitus with hyperglycemia; Z79.84 Long term (current) use of oral hypoglycemic drugs; Z82.49 Family history of ischemic heart disease and other diseases of the circulatory system
CPT/HCPCS: 36415; 80048; 82962; 85025; 85610; 93005; 93010; 94640; 96365; 96366; 96375; 96376; A9270-GY; J0360; J2060; J7512

== ENCOUNTER 2016-07-29 13:53 | Outpatient (CLI) | payer BC ==
[2016-07-29 15:01] LABS: Basophils % (Auto) 0.6 % (0.0-1.8); Eosinophils % (Auto) 0.9 % (0.0-4.3); Hematocrit 43.4 % (35.5-45.6); Mean Corpuscular HGB Conc 32 % (32-34); Mean Corpuscular Hemoglobin 27 pg (28-32); Mean Corpuscular Volume 84 fl (84-94); Platelet Count 199 K/mm3 (140-440); Red Blood Count 5.17 M/mm3 (3.65-5.03); Red Cell Distribution Width 13.8 % (13.2-15.2)
--- NOTE | 2016-07-29 15:32 | XRay Report ---
ROUTINE CHEST, TWO VIEWS: HISTORY: Asthma exacerbation, shortness of breath. The trachea, heart, mediastinal contour, lung davidson and bony thorax are unremarkable. IMPRESSION: Unremarkable chest x-ray.
[2016-08-01 16:19] LABS: Vitamin D, 25-OH, Total 20 ng/mL (30-100)
== END 2016-07-29 13:54 | disposition home or self-care (01) ==
LOC: XRAY 13:53
PROVIDERS: ATTEND Nurse Practitioner
DX: J45.51 Severe persistent asthma with (acute) exacerbation (principal)
CPT/HCPCS: 36415; 71020; 82306; 82784; 82785; 85025

== ENCOUNTER 2018-08-06 11:14 | Day surgery (SDC) | payer BC ==
[~2018-08-06 11:14] MED LIST: CYCLOGYL ONE; NEOFRIN ONE; TETRACAINE 0.5% ONE; XYLOCAINE 2%/ EPI 1:200,000 INFILTRATI ONE
[2018-08-06] MEDS ORDERED: MYDRIACYL ONE (12:26)
[2018-08-06] MEDS ORDERED: TETRACAINE 0.5% OD ONE (12:39)
[2018-08-06] MEDS ORDERED: NEOFRIN OD ONE (12:40)
[2018-08-06] MEDS ORDERED: MYDRIACYL OD ONE ×2 (12:40)
[2018-08-06] MEDS ORDERED: GONAK OD ONE (13:24)
[2018-08-06] MEDS ORDERED: GONAK ONE (14:33)
[2018-08-06 14:59] VITALS: BP 147/87
== END 2018-08-06 11:15 | disposition home or self-care (01) ==
LOC: OR 11:14
PROVIDERS: ATTEND Specialist
DX: E11.3211 Type 2 diabetes mellitus with mild nonproliferative diabetic retinopathy with macular edema, right eye (principal); E11.51 Type 2 diabetes mellitus with diabetic peripheral angiopathy without gangrene; H26.491 Other secondary cataract, right eye; M10.9 Gout, unspecified; E78.5 Hyperlipidemia, unspecified; I10 Essential (primary) hypertension; E78.00 Pure hypercholesterolemia, unspecified; J44.9 Chronic obstructive pulmonary disease, unspecified; G47.30 Sleep apnea, unspecified; K21.9 Gastro-esophageal reflux disease without esophagitis; F41.9 Anxiety disorder, unspecified; I25.10 Atherosclerotic heart disease of native coronary artery without angina pectoris; Z72.89 Other problems related to lifestyle; Z98.890 Other specified postprocedural states; Z82.61 Family history of arthritis; Z80.8 Family history of malignant neoplasm of other organs or systems; Z79.899 Other long term (current) drug therapy; Z86.73 Personal history of transient ischemic attack (TIA), and cerebral infarction without residual deficits; Z82.5 Family history of asthma and other chronic lower respiratory diseases
CPT/HCPCS: 82962

== ENCOUNTER 2021-08-03 14:51 | Outpatient (CLI) | payer BC ==
[2021-08-03 15:34] LABS: Hematocrit 36.9 % (35.5-45.6); Hemoglobin 12.7 gm/dl (11.8-15.2)
[2021-08-03 15:36] LABS: Albumin 4.4 g/dL (3.9-5); Calcium 9.2 mg/dL (8.4-10.2)
== END 2021-08-03 14:52 | disposition home or self-care (01) ==
LOC: LAB 14:51
PROVIDERS: ATTEND Internal Medicine Nephrology
DX: N18.30 Chronic kidney disease, stage 3 unspecified (principal)
CPT/HCPCS: 36415; 80048; 82040; 84100; 85014; 85018

== ENCOUNTER 2021-09-18 14:51 | Outpatient (CLI) | payer BC ==
[2021-09-18 15:20] LABS: Creatinine 24 Hour,Urine 2.1 (0.8-2.8); Creatinine,Urine 67.5 mg/dL (0.1-20.0)
== END 2021-09-18 14:52 | disposition home or self-care (01) ==
LOC: LAB 14:51
PROVIDERS: ATTEND Internal Medicine Nephrology
DX: I12.9 Hypertensive chronic kidney disease with stage 1 through stage 4 chronic kidney disease, or unspecified chronic kidney disease (principal); N18.30 Chronic kidney disease, stage 3 unspecified; E11.22 Type 2 diabetes mellitus with diabetic chronic kidney disease; M19.90 Unspecified osteoarthritis, unspecified site; E55.9 Vitamin D deficiency, unspecified
CPT/HCPCS: 82570; 84156

== ENCOUNTER 2021-12-13 07:35 | Outpatient (CLI) | payer BC ==
[2021-12-13] MEDS: diazePAM 5 MG TAB PO SCH (10:00)
== END 2021-12-13 07:36 | disposition home or self-care (01) ==
LOC: ECHO 07:35
PROVIDERS: ATTEND Internal Medicine
DX: Z01.810 Encounter for preprocedural cardiovascular examination (principal); I51.7 Cardiomegaly; R06.02 Shortness of breath; N18.30 Chronic kidney disease, stage 3 unspecified; I25.10 Atherosclerotic heart disease of native coronary artery without angina pectoris
CPT/HCPCS: 93306; C8929